=== PATIENT | female | born 1995 | race Caucasian/White ===

== ENCOUNTER 2018-12-03 17:42 | Emergency (ER) | payer OTHER ==
[2018-12-03] MEDS ORDERED: LORAZEPAM 1 MG TABLET PO ONE (21:43)
--- NOTE | 2018-12-03 21:47 | ER Document Report ---
ED Medical Screen (RME) - General Chief Complaint: Blood Pressure Problem Stated Complaint: BLOOD PRESSURE ISSUE Time Seen by Provider: 12/03/18 21:43 Notes: 23-year-old female, comes emergency department for chief complaint of feeling her heart racing, feeling lightheaded like she might pass out, feeling shaky. She states this started earlier when she was at work, she works as a registered nurse. She is on oral contraceptive, she does not smoke, she denies lower extremity swelling, she denies recent travel or surgery, she denies history of blood clots or family history of blood clot. She denies chest pain or shortness of breath. Temperature is 100.2, however patient states this is normal for her, her temperature averages at about 100 when she is evaluated in the medical office reportedly. She denies feeling ill. She does have a history of anxiety, was prescribed Xanax, she states she has never taken it and did not take it today. She states this does not specifically feel like a classic panic attack. TRAVEL OUTSIDE OF THE [place] IN LAST 30 DAYS: No - Related Data Allergies/Adverse Reactions: No Known Allergies Allergy (Unverified 12/03/18 17:55) Physical Exam - Vital signs Vitals: Temp Pulse Resp BP Pulse Ox 100.2 F 122 H 16 149/91 H 97 12/03/18 17:59 12/03/18 17:59 12/03/18 17:59 12/03/18 17:59 12/03/18 17:59 - Respiratory Respiratory status: No respiratory distress Breath sounds: Normal - Cardiovascular Rhythm: Regular, Tachycardia Heart sounds: Normal auscultation, S1 appreciated, S2 appreciated Course - Re-evaluation Re-evalutation: Patient is tachycardic. She is mildly anxious but does not appear severely anxious, she talks evenly and reasonably. She is a medical professional. I did discuss different options and after discussion decision was made to proceed with testing including d-dimer and thyroid testing. Giving a dose of Ativan as well to see if this will help. Patient very agreeable with this plan. - Vital Signs Vital signs: Temp Pulse Resp BP Pulse Ox 100.2 F 122 H 16 149/91 H 97 12/03/18 17:59 12/03/18 17:59 12/03/18 17:59 12/03/18 17:59 12/03/18 17:59
--- NOTE | 2018-12-03 22:30 | RADIOLOGY REPORT (SQ) ---
XR CHEST 1 VIEW HISTORY: Tachycardia, near syncope. COMPARISON: None. FINDINGS: The heart size is normal. The lungs are clear. No pleural effusions or pneumothorax is seen. No acute bony findings. IMPRESSION: No evidence of acute cardiopulmonary disease.
[2018-12-03 22:53] LABS: ABSOLUTE LYMPHOCYTES (AUTO) 3.4 10^3/uL (0.5-4.7); ABSOLUTE MONOCYTES (AUTO) 0.5 10^3/uL (0.1-1.4); ABSOLUTE NEUT (AUTO) 7.2 10^3/uL (1.7-8.2); BASOPHILS % (AUTO) 0.4 % (0-2); EOSINOPHILS % (AUTO) 0.1 % (0-6); HEMATOCRIT 41.4 % (36.0-47.0); HEMOGLOBIN 14.1 g/dL (12.0-15.5); LYMPHOCYTES % (AUTO) 30.4 % (13-45); MEAN CORPUSCULAR VOLUME 88 fl (80-97); MONOCYTES % (AUTO) 4.5 % (3-13); PLATELET COUNT 252 10^3/uL (150-450); RED BLOOD COUNT 4.69 10^6/uL (3.72-5.28); RED CELL DISTRIBUTION WIDTH 12.8 % (11.5-14.0); SEGMENTED NEUTROPHILS % (AUTO) 64.6 % (42-78); TOTAL CELLS COUNTED % (AUTO) 100 %; WHITE BLOOD COUNT 11.2 10^3/uL (4.0-10.5)
[2018-12-03 23:00] LABS: ALANINE AMINOTRANSFERASE 23 U/L (9-52); ALBUMIN 4.6 g/dL (3.5-5.0); ALKALINE PHOSPHATASE 77 U/L (38-126); ANION GAP 12 (5-19); ASPARTATE AMINO TRANSFERASE 21 U/L (14-36); BILIRUBIN,DIRECT 0.1 mg/dL (0.0-0.4); BILIRUBIN,TOTAL 0.4 mg/dL (0.2-1.3); BLOOD UREA NITROGEN 9 mg/dL (7-20); CARBON DIOXIDE 23 mmol/L (22-30); CHLORIDE 106 mmol/L (98-107); GLUCOSE 88 mg/dL (75-110); POTASSIUM 4.5 mmol/L (3.6-5.0); SODIUM 141.4 mmol/L (137-145); TOTAL PROTEIN 7.8 g/dL (6.3-8.2)
[2018-12-03 23:04] LABS: APPEARANCE,URINE CLEAR; BILIRUBIN,URINE NEGATIVE (NEGATIVE); COLOR,URINE YELLOW; GLUCOSE, URINE NEGATIVE (NEGATIVE); KETONES,URINE 20 mg/dL (NEGATIVE); LEUKOCYTE ESTERASE,URINE TRACE (NEGATIVE); NITRITE,URINE NEGATIVE (NEGATIVE); PROTEIN,URINE NEGATIVE (NEGATIVE); URINE SPECIFIC GRAVITY 1.011; UROBILINOGEN,URINE NEGATIVE mg/dL (<2.0)
[2018-12-03 23:16] LABS: FREE T4 (FREE THYROXINE) 1.1 ng/dL (0.78-2.19)
[2018-12-03 23:30] LABS: THYROID STIMULATING HORMONE 2.78 uIU/mL (0.47-4.68)
--- NOTE | 2018-12-04 01:08 | ER Document Report ---
ED General - General Chief Complaint: Blood Pressure Problem Stated Complaint: BLOOD PRESSURE ISSUE Time Seen by Provider: 12/04/18 01:08 Primary Care Provider: LINDA GAN [Primary Care Provider] - Follow up as needed Mode of Arrival: Ambulatory Information source: Patient Notes: HISTORY OF PRESENT ILLNESS: Patient is a 23-year-old female with a past medical history of anxiety who presents with elevated blood pressure and having "panic attacks." Patient does state that she was seen in urgent care and was given Ativan with improvement, reports taking Xanax at home but only takes it at bedtime because it makes her drowsy and she does not believe she can work feeling that way. Of note, the patient has an appointment with her psychiatrist in 2 days. Location: General chest Onset: Sudden Provocation: "I am not sure it just happens" Quality: "I feel awful like I am going to " Radiation: None Severity: Moderate to severe Timing: Intermittent, now resolved Associated symptoms: No fevers or chills, no vaginal bleeding or discharge, no chest pain or shortness of breath REVIEW OF SYSTEMS: CONSTITUTIONAL : Denies fever or chills, no sweats. Denies recent illness. EENT: Denies eye, ear, throat, or mouth pain or symptoms. Denies nasal or sinus congestion. CARDIOVASCULAR: Denies chest pain. RESPIRATORY: Denies cough, cold, or chest congestion. Denies shortness of breath, difficulty breathing, or wheezing. GASTROINTESTINAL: Denies abdominal pain. Denies nausea, vomiting, or diarrhea. Denies constipation. GENITOURINARY: Denies difficulty urinating, painful urination, burning, frequency, or blood in urine. Denies vaginal bleeding, abnormal or irregular periods. MUSCULOSKELETAL: Denies neck or back pain or joint pain or swelling. SKIN: Denies rash or skin lesions. HEMATOLOGIC : Denies easy bruising or bleeding. LYMPHATIC: Denies swollen, enlarged glands. NEUROLOGICAL: Denies altered mental status or loss of consciousness. Denies headache. Denies weakness or paralysis or loss of use of either side. Denies problems with gait or speech. Denies sensory or motor loss. PSYCHIATRIC: Positive for anxiety. Denies depression or suicidal/homicidal ideations, no hallucinations. All other systems reviewed and negative. PHYSICAL EXAMINATION: GENERAL: Anxious-appearing, well-nourished and in no acute distress. HEAD: Atraumatic, normocephalic. No scalp deformity, depression, or crepitance. EYES: Pupils are 3 mm and equal/round/reactive to light, extraocular movements intact, sclera anicteric, conjunctiva are normal. ENT: Nares patent bilaterally, oropharynx clear without exudates or palatal petechia. Moist mucous membranes. No tonsil hypertrophy. NECK: Normal range of motion, supple without lymphadenopathy. LUNGS: Breath sounds present, equal, and clear to auscultation bilaterally. No wheezes, rales, or rhonchi. HEART: Increased rate with normal rhythm without murmurs, rubs, or gallops. 2+ peripheral pulses. Normal capillary refill. ABDOMEN: Soft, nontender, nondistended. Normoactive bowel sounds. No guarding, no rebound. No masses appreciated. BACK: Normal contour, no midline tenderness. Rectal exam deferred. PELVC: Deferred. EXTREMITIES: Normal range of motion, no pitting or edema. No cyanosis. NEUROLOGICAL: No focal neurological deficits. Moves all extremities spontaneously and on command. PSYCH: Jittery and anxious, normal affect. No suicidal thoughts/ideations. No homocidal thoughts/ideations. No hallucinations. SKIN: Warm, dry, normal turgor, no rashes or lesions noted. ASSESSMENT AND PLAN: This patient is a 23-year-old female who presents with likely episodes of panic attack given her general anxiety disorder. 1. Will obtain labs, urine, and reassess. 2. Will anticipate discharge home if workup is negative. TRAVEL OUTSIDE OF THE [place] IN LAST 30 DAYS: No - Related Data Allergies/Adverse Reactions: No Known Allergies Allergy (Unverified 12/03/18 17:55) Past Medical History - General Information source: Patient - Social History Smoking Status: Never Smoker Chew tobacco use (# tins/day): No Frequency of alcohol use: None Drug Abuse: Bath salts Lives with: Family Family History: Reviewed & Not Pertinent Patient has suicidal ideation: No Patient has homicidal ideation: No - Past Medical History Cardiac Medical History: Reports: None Pulmonary Medical History: Reports: None EENT Medical History: Reports: None Neurological Medical History: Reports: None Endocrine Medical History: Reports: None Renal/ Medical History: Reports: None. Denies: Hx Peritoneal Dialysis Malignancy Medical History: Reports: None GI Medical History: Reports: None Musculoskeletal Medical History: Reports None Skin Medical History: Reports None Psychiatric Medical History: Reports: Hx Anxiety Traumatic Medical History: Reports: None Infectious Medical History: Reports: None Surgical Hx: Negative Past Surgical History: Reports: None - Immunizations Immunizations up to date: Yes Hx Diphtheria, Pertussis, Tetanus Vaccination: Yes History of Influenza Vaccine for 07/2017 - 12/2017 Season: Unknown Physical Exam - Vital signs Vitals: Temp Pulse Resp BP Pulse Ox 100.2 F 122 H 16 149/91 H 97 12/03/18 17:59 12/03/18 17:59 12/03/18 17:59 12/03/18 17:59 12/03/18 17:59 Course - Re-evaluation Re-evalutation: 12/04/18 02:01 Patient will be discharged home with return precautions and follow-up as needed. Patient voices both understanding and agreeing with the plan. - Vital Signs Vital signs: Temp Pulse Resp BP Pulse Ox 100.2 F 122 H 16 136/93 H 99 12/03/18 17:59 12/03/18 17:59 12/03/18 17:59 12/04/18 01:31 12/04/18 01:31 - Laboratory Result Diagrams: 12/03/18 22:10 12/03/18 22:10 Laboratory results interpreted by me: 12/03/18 12/03/18 22:10 22:14 WBC 11.2 H Urine Ketones 20 H Ur Leukocyte Esterase TRACE H - EKG Interpretation by Wi EKG shows normal: Sinus rhythm Rate: Normal Rhythm: NSR [place]/QRS: No: Right axis deviation, Left axis deviation, RBBB, LBBB, IVCD, LAHB/LAFB, LPHB/LPFB, Bifasicular block Voltage: No: Increased voltage, Consistant with LVH, Decreased voltage, Throughout, Limb leads P Waves: No: SEGUNDO, LAE, Absent, AV Dissociation, Other Heart block present: No: 1st Degree, Mobitz 1, Mobitz 2, CHB (3rd degree block) When compared to previous EKG there are: Previous EKG unavailable Discharge - Discharge Clinical Impression: Generalized anxiety disorder Condition: Good Disposition: HOME, SELF-CARE Instructions: Anxiety ([facility]) Additional Instructions: You have been evaluated in the Emergency Department for elevated blood pressure and anxiety. While here, you had blood work that was normal and it is now safe to be discharged home. Please follow-up with your primary physician as instructed to be rechecked. You have been given a prescription for Ativan, take this as instructed only as needed. Return to the Emergency Department if you experience chest pain, shortness of breath, or any other concerning symptoms. Prescriptions: Lorazepam [Ativan 0.5 mg Tablet] 0.5 mg PO Q6HP PRN #30 tab PRN Reason: Forms: Return to Work Referrals: LOCALMD,NO [Primary Care Provider] - Follow up as needed Print Language: Slovenian
[2018-12-04 01:35] VITALS: BP 136/93
--- NOTE | 2018-12-05 10:11 | EKG REPORT ---
SEVERITY:- OTHERWISE NORMAL ECG - SINUS TACHYCARDIA LVH NONSPECIFIC ST-T CHANGES : Confirmed by: Yash Chan 05-Dec-2018 10:10:32
== END 2018-12-04 02:12 | disposition home or self-care (01) ==
LOC: ER 17:42
DX: F41.9 Anxiety disorder, unspecified (principal)
CPT/HCPCS: 36415; 71045; 80053; 81001; 84439; 84443; 85025; 85379; 93005; 93010; 99284

== ENCOUNTER 2019-12-10 15:17 | Emergency (ER) | payer OTHER ==
[2019-12-10] MEDS ORDERED: NORMAL SALINE 1000 ML 1,000 ML IV ONE (16:01)
[2019-12-10 16:03] LABS: ABSOLUTE BASOPHILS # (AUTO) 0.1 10^3/uL (0.0-0.2); ABSOLUTE EOSINOPHILS # (AUTO) 0.1 10^3/uL (0.0-0.6); ABSOLUTE LYMPHOCYTES (AUTO) 3.9 10^3/uL (0.5-4.7); ABSOLUTE MONOCYTES (AUTO) 0.8 10^3/uL (0.1-1.4); ABSOLUTE NEUT (AUTO) 4.6 10^3/uL (1.7-8.2); EOSINOPHILS % (AUTO) 0.8 % (0-6); HEMATOCRIT 41.6 % (36.0-47.0); HEMOGLOBIN 14.2 g/dL (12.0-15.5); LYMPHOCYTES % (AUTO) 41.6 % (13-45); MEAN CORPUSCULAR HEMOGLOBIN 30.5 pg (27.0-33.4); MEAN CORPUSCULAR HGB CONC 34.1 g/dL (32.0-36.0); MEAN CORPUSCULAR VOLUME 90 fl (80-97); PLATELET COUNT 288 10^3/uL (150-450); RED BLOOD COUNT 4.66 10^6/uL (3.72-5.28); RED CELL DISTRIBUTION WIDTH 13.4 % (11.5-14.0); SEGMENTED NEUTROPHILS % (AUTO) 48.6 % (42-78); TOTAL CELLS COUNTED % (AUTO) 100 %; WHITE BLOOD COUNT 9.5 10^3/uL (4.0-10.5)
[2019-12-10 16:26] LABS: ALBUMIN 4.3 g/dL (3.5-5.0); ALKALINE PHOSPHATASE 95 U/L (38-126); ANION GAP 12 (5-19); ASPARTATE AMINO TRANSFERASE 31 U/L (14-36); BILIRUBIN,DIRECT 0.3 mg/dL (0.0-0.4); BILIRUBIN,TOTAL 0.3 mg/dL (0.2-1.3); BLOOD UREA NITROGEN 14 mg/dL (7-20); CALCIUM 9.4 mg/dL (8.4-10.2); CARBON DIOXIDE 24 mmol/L (22-30); CHLORIDE 103 mmol/L (98-107); GLUCOSE 108 mg/dL (75-110); POTASSIUM 3.7 mmol/L (3.6-5.0); TOTAL PROTEIN 7.7 g/dL (6.3-8.2)
--- NOTE | 2019-12-10 16:28 | ER Document Report ---
ED General - General Chief Complaint: Seizure Stated Complaint: SEIZURES Time Seen by Provider: 12/10/19 15:29 Notes: HPI: 24-year-old female who presents today with a witnessed syncopal/seizure- like episode. This was when the patient was giving blood. Patient has syncopized before around 5 years ago. After this event today patient was having a shaking episode on the ground according to reports. Patient did not have incontinence. Patient denies any and all headache, chest pain, abdominal pain, weakness or numbness before the event. She states she did start to feel "very hot" before the event. ROS: See HPI All other review of systems reviewed and otherwise negative Reviewed vital signs and nursing note as charted by RN. PHYSICAL EXAM: CONSTITUTIONAL: Alert and oriented and responds appropriately to questions. Well-appearing; well-nourished HEAD: Normocephalic; atraumatic EYES: PERRL; Conjunctivae clear, sclerae non-icteric ENT: Normal nose; no rhinorrhea; moist mucous membranes; pharynx without lesions noted NECK: Supple without meningismus; non-tender; no cervical lymphadenopathy, no masses CARD: Regular rate and rhythm; no murmurs; symmetric distal pulses RESP: Normal chest excursion without splinting or tachypnea; breath sounds clear and equal bilaterally ABD/GI: Normal bowel sounds; non-distended; soft, non-tender BACK: The back appears normal and is non-tender to palpation EXT: Normal ROM in all joints; non-tender to palpation; no edema SKIN: No acute lesions noted NEURO: CN 2-12 intact; 5/5 bilateral upper and lower extremity strength with sensation intact to light touch PSYCH: The patient's mood and manner are appropriate. Grooming and personal hygiene are appropriate. TRAVEL OUTSIDE OF THE [place] IN LAST 30 DAYS: No - Related Data Allergies/Adverse Reactions: No Known Allergies Allergy (Unverified 12/03/18 17:55) Home Medications: zoloft Past Medical History - Social History Smoking Status: Never Smoker Family History: Reviewed & Not Pertinent Patient has suicidal ideation: No Patient has homicidal ideation: No Renal/ Medical History: Denies: Hx Peritoneal Dialysis Psychiatric Medical History: Reports: Hx Anxiety, Hx Depression - Immunizations Immunizations up to date: Yes Hx Diphtheria, Pertussis, Tetanus Vaccination: Yes Physical Exam - Vital signs Vitals: Resp 16 12/10/19 15:37 Course - Re-evaluation Re-evalutation: Given the above history and physical we will obtain basic labs, hemoglobin level, place the patient on the monitor, obtain an EKG and provide fluids, and reassess. Patient denies any and all symptoms at this time. She had no chest pain or shortness of breath. I do believe ACS, PE, or seizure to be unlikely given the constellation of symptoms and the events surrounding this episode. EKG shows a heart of 106, sinus tachycardia, normal axis, no ST elevation or depression. 12/10/19 18:[address] scan as recorded. Heart rate is currently 80. Patient still denies any and all symptomatology. Given the above history and physical, patient will be discharged home with strict return precautions and follow-up with the primary care provider. This does seem to be much more vasovagal in nature. - Vital Signs Vital signs: Temp Pulse Resp BP Pulse Ox 98.7 F 112 H 16 106/76 100 12/10/19 15:50 12/10/19 15:50 12/10/19 17:06 12/10/19 16:02 12/10/19 17:06 - Laboratory Result Diagrams: 12/10/19 15:33 12/10/19 15:33 Discharge - Discharge Clinical Impression: Syncope and collapse Condition: Fair Disposition: HOME, SELF-CARE Additional Instructions: Come back immediately for any repeat episodes, chest pain, shortness of breath, fevers, leg swelling, or any other acute problems. Please do not drive a car, take a bath alone, go swimming, engage in any activities that may cause a seriou s event or possible until you have been seen and cleared by either the primary care physician or specialist.
--- NOTE | 2019-12-10 17:18 | RADIOLOGY REPORT (SQ) ---
EXAM DESCRIPTION: CT HEAD WITHOUT COMPLETED DATE/TIME: 12/10/2019 5:03 pm REASON FOR STUDY: 2; seizure? COMPARISON: None. TECHNIQUE: Axial images acquired through the brain without intravenous contrast. Images reviewed wi th bone, brain and subdural windows. Additional sagittal and coronal reconstructions were generated. Images stored on PACS. All CT scanners at this facility use dose modulation, iterative reconstruction, and/or weight based d osing when appropriate to reduce radiation dose to as low as reasonably achievable (ALARA). [facility]: Dose Right [facility]: CareDose [facility]: Dose Right [facility]: Teradose 4D [facility]: Smart Darkstrand RADIATION DOSE: CT Rad equipment meets quality standard of care and radiation dose reduction techniq ues were employed. CTDIvol: 48.6 mGy. DLP: 856 mGy-cm. mGy. LIMITATIONS: None. FINDINGS: VENTRICLES: Normal size and contour. CEREBRUM: No masses. No hemorrhage. No midline shift. No evidence for acute infarction. Normal gra y/white matter differentiation. No areas of low density in the white matter. CEREBELLUM: No masses. No hemorrhage. No alteration of density. No evidence for acute infarction. EXTRAAXIAL SPACES: No fluid collections. No masses. ORBITS AND GLOBE: No intra- or extraconal masses. Normal contour of globe without masses. CALVARIUM: No fracture. PARANASAL SINUSES: No fluid or mucosal thickening. SOFT TISSUES: No mass or hematoma. OTHER: No other significant finding. IMPRESSION: NORMAL BRAIN CT WITHOUT CONTRAST. EVIDENCE OF ACUTE STROKE: NO. COMMENT: Quality ID # [id number]: Final reports with documentation of one or more dose reduction techniques (e.g., Automated exposure control, adjustment of the mA and/or kV according to patient size, use of iterative reconstruction technique) TECHNICAL DOCUMENTATION: JOB ID: [id number] 2010 [employer]- All Rights Reserved Reading location - IP/workstation name: [email or web address]
[2019-12-10 18:36] VITALS: BP 126/78
--- NOTE | 2019-12-10 18:57 | EKG REPORT ---
SEVERITY:- BORDERLINE ECG - SINUS TACHYCARDIA BORDERLINE T ABNORMALITIES, INFERIOR LEADS : Confirmed by: Pilo Vega MD 10-Dec-2019 18:56:44
== END 2019-12-10 18:35 | disposition home or self-care (01) ==
LOC: ER 15:17
DX: R55 Syncope and collapse (principal); R00.0 Tachycardia, unspecified
CPT/HCPCS: 93005; 99284; 96360; 36415; 84443; 85025; 81025; 80053; 70450; 93010; J7030